=== PATIENT | male | born 1990 | race Caucasian/White ===

== ENCOUNTER 2019-05-26 13:58 | Emergency (ER) | payer OTHER ==
[~2019-05-26] VITALS: Ht 182.9 cm; Wt 81.7 kg
[2019-05-26 14:25] LABS: ABSOLUTE BASOPHILS 0.1 thou/uL (0.0-0.2); ABSOLUTE LYMPHOCYTES 2.2 thou/uL (0.8-5.3); ABSOLUTE MONOCYTES 0.9 thou/uL (0.0-1.2); ABSOLUTE NEUTROPHILS 7.8 thou/uL (1.6-8.1); BASOPHILS 0.9 %; EOSINOPHILS 0.4 %; HEMATOCRIT 46.8 % (42.0-52.0); HEMOGLOBIN 16.1 gm/dL (14.0-18.0); LYMPHOCYTES 19.7 %; MCH 29.6 pg (26.0-34.0); MCHC 34.5 g/dL (28.0-37.0); MCV 85.7 fL (80.0-100.0); MONOCYTES 8.4 %; MPV 7.5 fl. (7.2-11.1); NUCLEATED RBCS 0 /100WBC; PLATELET COUNT* 296 thou/uL (150-400); POLYS 70.6 %; RBC 5.46 mil/uL (4.50-6.00); RDW-CV 13.4 % (10.5-14.5)
[2019-05-26 14:33] LABS: CALCIUM 9.3 mg/dL (8.5-10.1); POTASSIUM 3.3 mmol/L (3.5-5.1)
[2019-05-26 14:35] LABS: URINE BLOOD TRACE (Negative); URINE CLARITY CLEAR; URINE COLOR YELLOW; URINE GLUCOSE-RANDOM NEGATIVE (Negative); URINE LEUKOCYTES-REFLEX NEGATIVE (Negative); URINE NITRITE-REFLEX NEGATIVE (Negative); URINE PROTEIN TRACE (Negative); URINE SPECIFIC GRAVITY >= 1.030 (1.005-1.030); URINE UROBILINOGEN 0.2 E.U./dl (0.2-1.0)
[2019-05-26 14:43] LABS: URINE BILIRUBIN 2+ (Negative); URINE KETONES 3+ (Negative)
[2019-05-26 14:46] LABS: ALBUMIN 4.8 g/dL (3.4-5.0); TOTAL BILIRUBIN 0.5 mg/dL (<0.1-1.0); TOTAL PROTEIN 7.9 g/dL (6.4-8.2)
[2019-05-26 14:46] LABS: ACETEST (KETONE CONFIRMATORY) Large (Negative); AMP/METHAMP Negative (Negative); BARBITURATES Negative (Negative); BENZODIAZEPINES Negative (Negative); COCAINE Negative (Negative); ICTOTEST (BILI CONFIRMATORY) Negative (Negative); METHADONE Negative (Negative); OPIATES Negative (Negative); PCP Negative (Negative); THC POSITIVE (Negative)
[2019-05-26] MEDS ORDERED: ZOFRAN ODT4 MG DISSOLVE (15:14)
[2019-05-26 16:00] VITALS: BP 116/84
--- NOTE | 2019-05-26 16:50 | EKG ---
[place] [address] ELECTROCARDIOGRAM REPORT Name: LEEROY WEI Room: [facility]#: [id number] Admission: 05/26/19 Attend Phys: Discharge: 05/26/19 Date of : 86 Report #: [id number] THIS REPORT FOR: //name// [facility] ED Test Date: 2019-05-26 Test Time: 14:27:51 Pat Name: LEEROY WEI Department: Room: Gender: M [employer]: : 1990 Requested By: Aayush Jansen Order Number: [id number] MD: Luke Rivera Measurements Intervals [place] Rate: 100 P: 74 [place]: 147 QRS: 57 QRSD: 110 T: 49 QT: 328 QTc: 423 Interpretive Statements Sinus tachycardia No previous ECG available for comparison Electronically Signed On 05-26-2019 16:50:07 BURSAR by Luke Rivera [email or web address] <ELECTRONICALLY SIGNED> By: Luke Rivera MD, [facility] 05/26/19 1650 1427 1427 Luke Rivera MD, FACC /EPI
== END 2019-05-26 16:01 | disposition home or self-care (01) ==
LOC: M.ERS 13:58
PROVIDERS: Emergency Medicine Emergency Medical Services
DX: R11.0 Nausea (principal)